=== PATIENT | male | born 1965 | race Caucasian/White ===

== ENCOUNTER 2023-11-05 09:41 | Outpatient (OUT) | payer BC, SELFPAY ==
[2023-11-05 10:00] LABS: Basophils Percent Auto 0.6 % (0.2-2.0); Eosinophils Absolute Auto 0.1 10^3/uL (0.0-0.7); Eosinophils Percent Auto 1.6 % (0.9-7.0); Hematocrit 44.7 % (42.0-54.0); Immature Granulocytes Abs Auto 0.01 10^3/uL (0.00-0.03); Immature Granulocytes Pct Auto 0.2 % (0.0-0.5); Lymphocytes Absolute Auto 1.4 10^3/uL (1.2-3.8); Lymphocytes Percent Auto 28.9 % (20.5-60.0); Mean Corpuscular HGB Conc 33.6 g/dL (29.9-35.2); Mean Corpuscular Hemoglobin 29.6 pg (25.9-34.0); Mean Corpuscular Volume 88.2 fL (80.0-94.0); Mean Platelet Volume 9.5 fL (9.5-13.5); Monocytes Absolute Auto 0.5 10^3/uL (0.3-0.8); Neutrophils Absolute Auto 2.9 10^3/uL (1.4-6.5); Neutrophils Percent Auto 58.7 % (43.0-75.0); Platelet Count 219 10^3/uL (150-450); Red Blood Count 5.07 10^6/uL (4.70-6.10); Red Cell Distribution Width 13.1 % (11.0-15.0); White Blood Count 4.9 10^3/uL (4.0-11.0)
[2023-11-05 10:31] LABS: Alanine Aminotransferase 31 U/L (16-63); Albumin Globulin Ratio 1.1; Alkaline Phosphatase 71 U/L (46-116); Aspartate Amino Transferase 17 U/L (15-37); BUN Creatinine Ratio 16.3; Bilirubin Total 0.9 mg/dL (0.2-1.0); Calcium 8.9 mg/dL (8.5-10.1); Carbon Dioxide 30.6 mmol/L (21.0-32.0); Chloride 104 mmol/L (98-107); Chol HDL Ratio 5.2; Cholesterol 219 mg/dL (<=200); Estimated GFR (African America >60 (>=60); Estimated GFR (Non-African Ame >60 (>=60); Globulin 3.8 g/dL; Glucose 94 mg/dL (74-106); HDL Cholesterol 42 mg/dL (40-60); Potassium 4.6 mmol/L (3.5-5.1); Sodium 142 mmol/L (136-145); Total Protein 7.8 g/dL (6.4-8.2); Triglycerides 172 mg/dL (<=150); VLDL CHOLESTEROL 34.4 mg/dL
[2023-11-05 12:36] LABS: Prostate Specific Antigen Scrn 0.92 ng/mL (<=4.00)
== END 2023-11-05 09:42 | disposition home or self-care (01) ==
LOC: LAB 09:45
PROVIDERS: PCP Internal Medicine; Visit Provider Internal Medicine
DX: Z00.00 Encounter for general adult medical examination without abnormal findings (principal)
CPT/HCPCS: 36415; 80053; 80061; 85025; G0103

== ENCOUNTER 2024-11-08 09:21 | Outpatient (OUT) | payer BC, SELFPAY ==
--- OUTSIDE RECORDS SUMMARY | 2024-11-08 09:43 | XMS_ITS | CCD ---
Author Organization [facility] Care Team Providers Care Nicker Name Role Phone DR ANDREA MARIA Admitting Unavailable CANDACE, DR MADRIGAL Attending Unavailable CANDACE, DR MADRIGAL Primary Care Unavailable CANDACE, DR MADRIGAL Consulting Unavailable Andrea Maria Unavailable ANDREA MARIA Primary Care Unavailable SHAKIRA AZAR Attending Unavailable SHAKIRA AZAR Attending Unavailable SHAKIRA AZAR Referring Unavailable ANDREA MARIA Primary Care Unavailable Medications Current Medications Medication Drug Class(es) Dates Sig (Normalized) Sig (Original) omeprazole 40 mg delayed release oral capsule (2 sources) Proton Pump Inhibitor take 1 capsule by mouth once daily before breakfast Omeprazole 40 MG TAKE ONE CAPSULE BY MOUTH EVERY MORNING ON AN EMPTY STOMACH -30 MINUTES BEFORE BREAKFAST for 90 Active zolpidem tartrate 10 mg oral tablet (4 sources) gamma-Aminobutyri c Acid-ergic Agonist Start: 10-20-2023 take 1 tablet by mouth once at bedtime Ambien 10 MG 1 tablet Orally q HS for 90 days Sep, Active Start: 10-28-2022 take 1 tablet by leslie once as needed zolpidem 10mg zolpidem 10mg, 1 Tablet q HS # 90, 10/28/2022, Ref. x1. Active oral q HS for 90 Oct, Not-Taking/PRN Completed/Discontinued Medications Medication Drug Class(es) Dates Sig (Normalized) Sig (Original) SZSTANDARD1-Topical Cream Baclofen 2%, Cyclobenzaprine HCL 2%, Diclofenac Na 3%, Gabapentin 6%, Lidocaine HCL 2% Cream (2 sources) Start: 2020 SZSTANDARD1-Topical Cream Baclofen 2%, Cyclobenzaprine HCL 2%, Diclofenac Na 3%, Gabapentin 6%, Lidocaine HCL 2% Cream NEEDED TOPICALLY APPLY 1-2 GRAMS FOR 2-3 MINUTES EVERY 6-8 HOURS for 30 day(s) Jul, Not-Taking/PRN Triamcinolone (2 sources) Corticosteroid Start: 09-04-2020 Kenalog -40 mg Aug, 60 mg Problems Active Problems Problem Classification Problem Date Documented Da te Episodic/Chronic Esophageal disorders (5 sources) Gastro-esophageal reflux disease with esophagitis; Translations: [Gastroesophageal reflux disease with esophagitis without hemorrhage] Chronic Miscellaneous mental health disorders (3 sources) Primary insomnia; Translations: [Primary insomnia] Chronic Open wounds of extremities (2 sources) Unspecified open wound of unspecified finger without damage to nail, initial encounter; Translations: [Laceration of finger] Onset: 05-26-2024 Episodic Other injuries and conditions due to external causes (1 source) Laceration - injury Onset: 05-26-2024 Episodic Other nervous system disorders (2 sources) Chronic pain; Translations: [Other chronic pain] Chronic Other nervous system disorders (2 sources) Radial tunnel syndrome; Translations: [Lesion of radial nerve, unspecified upper limb] Chronic Other non-traumatic joint disorders (2 sources) Arthralgia of the upper arm; Translations: [Pain in right elbow] Episodic Other nutritional; endocrine; and metabolic disorders (1 source) Overweight Episodic Other screening for suspected conditions (not mental disorders or infectious disease) (2 sources) Encounter for screening for malignant neoplasm of prostate; Translations: [ENC SCREEN MALIG NEOPLASM PROSTATE] Onset: 10-16-2022 Episodic Superficial injury; contusion (1 source) Contusion of left index finger without damage to nail, initial encounter; Translations: [Contusion of left index finger without damage to nail, initial encounter] Onset: 05-26-2024 Episodic Past or Other Problems Problem Classification Problem Date Documented Da te Episodic/Chronic Esophageal disorders (1 source) Esophageal disorders Results Test Name Value Interpretation Reference Range Facil ity XR FINGER LT 2ND DIGIT MIN 2 VWSon 05-26-2024 XR FINGER LT 2ND DIGIT MIN 2 VWS XR FINGER LT 2ND DIGIT MIN 2 VWS CLINICAL INFORMATION: Crush injury. trauma TECHNIQUE/PROCEDURE: 3 views of the left second digit COMPARISON: No relevant prior studies available. FINDINGS: Soft tissue injury. No radiopaque foreign body. No fracture or periosteal reaction. No osseous erosions. IMPRESSION: Soft tissue injury with no radiopaque foreign body or fracture. Finalized by Kyler Blount MD on 05/26/2024 8:45 AM Normal [facility] CBC AUTO DIFFon 10-11-2022 BASO # 0.0 103/ul Normal 0.0-0.1 [facility] Comment on above: Performed By: #### C BC #### [facility] [address] [place] [address] Dr. Esther Gamino Basophils/100 WBC (Bld) 0.7 % Normal 0.2-2.0 [facility] Comment on above: Performed By: #### C BC #### [facility] [address] [place] [address] Dr. Esther Gamino EO # 0.1 103/ul Normal 0.0-0.7 [facility] Comment on above: Performed By: #### C BC #### [facility] [address] [place] [address] Dr. Esther Gamino Eosinophils/100 WBC (Bld) 1.7 % Normal 0.9-7.0 [facility] Comment on above: Performed By: #### C BC #### [facility] [address] [place] [address] Dr. Esther Gamino Erythrocyte distribution width (RBC) [Ratio] 13.3 % Normal 11.0-15.0 [facility] Comment on above: Performed By: #### C BC #### [facility] [address] [place] [address] Dr. Esther Gaimno Hematocrit (Bld) [Volume fraction] 44.9 % Normal 42.0-54.0 [facility] Comment on above: Performed By: #### C BC #### [facility] [address] [place] [address] Dr. Esther Gamino Hemoglobin (Bld) [Mass/Vol] 15.2 g/dL Normal 14.0-18.0 [facility] Comment on above: Performed By: #### C BC #### [facility] [address] [place] [address] Dr. Esther Gamino IG # 0.02 10e3/ul Normal 0.00-0.03 [facility] Comment on above: Performed By: #### C BC #### [facility] [address] [place] [address] Dr. Esther Gamino IG % 0.5 % Normal 0.0-0.5 [facility] Comment on above: Performed By: #### C BC #### [facility] [address] [place] [address] Dr. Esther Gamino LYMPH # 1.4 103/ul Normal 1.2-3.8 [facility] Comment on above: Performed By: #### C BC #### [facility] [address] [place] [address] Dr. Esther Gamino Lymphocytes/100 WBC (Bld) 33.1 % Normal 20.5-60.0 [facility] Comment on above: Performed By: #### C BC #### [facility] [address] [place] [address] Dr. Esther Gamino MANUAL DIFF REQ NO Normal [facility] Comment on above: Performed By: #### C BC #### [facility] [address] [place] [address] Dr. Esther Gamino MCH (RBC) [Entitic mass] 28.8 pg Normal 25.9-34.0 [facility] Comment on above: Performed By: #### C BC #### [facility] [address] [place] [address] Dr. Esther Gamino MCHC (RBC) [Mass/Vol] 33.9 g/dL Normal 29.9-35.2 [facility] Comment on above: Performed By: #### C BC #### [facility] [address] [place] [address] Dr. Esther Gamino MCV (RBC) [Entitic vol] 85.2 fL Normal 80.0-94.0 [facility] Comment on above: Performed By: #### C BC #### [facility] [address] [place] [address] Dr. Esther Gamino MONO # 0.4 103/ul Normal 0.3-0.8 [facility] Comment on above: Performed By: #### C BC #### [facility] [address] [address] [address] Esther Gamino Monocytes/100 WBC (Bld) 10.5 % Normal 1.7-12.0 [facility] Comment on above: Performed By: #### C BC #### [facility] [address] [address] [address] Esther Gamino NEUT # 2.3 103/ul Normal 1.4-6.5 [facility] Comment on above: Performed By: #### C BC #### [facility] [address] [address] [address] Esther Gamino Neutrophils/100 WBC (Bld) 53.5 % Normal 43.0-75.0 [facility] Comment on above: Performed By: #### C BC #### [facility] [address] [address] [address] Esther Gamino Platelet mean volume (Bld) [Entitic vol] 9.3 fL Critically low 9.5-13.5 [facility] Comment on above: Performed By: #### C BC #### [facility] [address] [address] [address] Esther Gamino PLT 221 103/ul Normal 150-450 [facility] Comment on above: Performed By: #### C BC #### [facility] [address] [address] [address] Esther Gamino RBC 5.27 106/ul Normal 4.70-6.10 [facility] Comment on above: Performed By: #### C BC #### [facility] [address] [address] [address] Esther Gamino WBC 4.2 103/ul Normal 4.0-11.0 [facility] Comment on above: Performed By: #### C BC #### [facility] [address] [place] [address] Dr. Esther Gamino LIPID PROFILEon 10-11-2022 CHOL-HDL RATIO NORM SEE BELOW Normal [facility] Comment on above: Result Comment: 3.3 - 4.4 LOW RISK 4.4 - 7.1 AVERAGE RISK 7.1 - 11.0 MODERATE RISK >11.0 HIGH RISK Performed By: #### C MP, LIPID #### [facility] [address] [place] [address] Dr. Esther Gamino Cholesterol [Mass/Vol] 233 mg/dL Critically high <=200 [facility] Comment on above: Performed By: #### C MP, LIPID #### [facility] [address] [address] [address] Esther Gamino Cholesterol in HDL [Mass/Vol] 43 mg/dL Normal 40-60 [facility] Comment on above: Performed By: #### C MP, LIPID #### [facility] [address] [place] [address] Dr. Esther Gamino Cholesterol in LDL [Mass/Vol] 159.0 mg/dL Normal [facility] Comment on above: Performed By: #### C MP, LIPID #### [facility] [address] [place] [address] Dr. Esther Gamino Cholesterol.total/C holesterol in HDL [Mass ratio] 5.4 {ratio} Normal [facility] Comment on above: Performed By: #### C MP, LIPID #### [facility] [address] [place] [address] Dr. Esther Gamino HDL NORMAL > or = 60 mg/dl - LOW CARDIOVASCULAR RISK <40 mg/dl - HIGH CARDIOVASCULAR RISK Normal [facility] Comment on above: Performed By: #### C MP, LIPID #### [facility] [address] [place] [address] Dr. Esther Gamino LDL CALC NORMAL SEE BELOW Normal [facility] Comment on above: Result Comment: <100 mg/dl OPTIMAL 100 - 129 mg/dl NEAR OR ABOVE OPTIMAL 130 - 159 mg/dl BORDERLINE HIGH 160 - 189 mg/dl HIGH >190 mg/dl VERY HIGH Performed By: #### C MP, LIPID #### [facility] [address] [place] [address] Dr. Esther Gamino Triglyceride [Mass/Vol] 155 mg/dL Critically high <=150 [facility] Comment on above: Performed By: #### C MP, LIPID #### [facility] [address] [place] [address] Dr. Esther Gamino VLDL CALC 31.0 mg/dL Normal [facility] Comment on above: Performed By: #### C MP, LIPID #### [facility] [address] [place] [address] Dr. Esther Gamino PROF 14(COMP METB)on 10-11- 022 Albumin [Mass/Vol] 4.1 g/dL Normal 3.4-5.0 [facility] Comment on above: Performed By: #### C MP, LIPID #### [facility] [address] [place] [address] Dr. Esther Gamino Albumin/Globulin [Mass ratio] 1.1 {ratio} Normal [facility] Comment on above: Performed By: #### C MP, LIPID #### [facility] [address] [place] [address] Dr. Esther Gamino ALP [Catalytic activity/Vol] 73 U/L Normal 46-116 [facility] Comment on above: Performed By: #### C MP, LIPID #### [facility] [address] [place] [address] Dr. Esther Gamino ALT [Catalytic activity/Vol] 36 U/L Normal 16-63 [facility] Comment on above: Performed By: #### C MP, LIPID #### [facility] [address] [place] [address] Dr. Esther Gamino Anion gap [Moles/Vol] 7.2 mmol/L Normal [facility] Comment on above: Performed By: #### C MP, LIPID #### [facility] [address] [place] [address] Dr. Esther Gamino AST [Catalytic activity/Vol] 20 U/L Normal 15-37 [facility] Comment on above: Performed By: #### C MP, LIPID #### [facility] [address] [place] [address] Dr. Esther Gamino Bilirubin [Mass/Vol] 0.6 mg/dL Normal 0.2-1.0 [facility] Comment on above: Performed By: #### C MP, LIPID #### [facility] [address] [address] [address] Esther Gamino Calcium [Mass/Vol] 9.4 mg/dL Normal 8.5-10.1 [facility] Comment on above: Performed By: #### C MP, LIPID #### [facility] [address] [address] [address] Esther Gamino Chloride [Moles/Vol] 103 mmol/L Normal 98-107 [facility] Comment on above: Performed By: #### C MP, LIPID #### [facility] [address] [address] [address] Esther Gamino CO2 [Moles/Vol] 33.0 mmol/L Critically high 21.0-32.0 [facility] Comment on above: Performed By: #### C MP, LIPID #### [facility] [address] [place] [address] Dr. Esther Gamino Creatinine [Mass/Vol] 0.93 mg/dL Normal 0.70-1.30 [facility] Comment on above: Performed By: #### C MP, LIPID #### [facility] [address] [place] [address] Dr. Esther Gamino EGFR-AF NIUEAN >60 Normal >=60 [facility] Comment on above: Performed By: #### C MP, LIPID #### [facility] [address] [place] [address] Dr. Esther Gamino EGFR-NON AF NIUEAN >60 Normal >=60 [facility] Comment on above: Performed By: #### C MP, LIPID #### [facility] [address] [place] [address] Dr. Esther Gamino Globulin (S) [Mass/Vol] 3.9 g/dL Normal [facility] Comment on above: Performed By: #### C MP, LIPID #### [facility] [address] [place] [address] Dr. Esther Gamino Glucose [Mass/Vol] 92 mg/dL Normal 74-106 [facility] Comment on above: Performed By: #### C MP, LIPID #### [facility] [address] [address] [address] Esther Gamino Potassium [Moles/Vol] 4.2 mmol/L Normal 3.5-5.1 [facility] Comment on above: Performed By: #### C MP, LIPID #### [facility] [address] [address] [address] Esther Gamino Protein [Mass/Vol] 8.0 g/dL Normal 6.4-8.2 [facility] Comment on above: Performed By: #### C MP, LIPID #### [facility] [address] [address] [address] Esther Gamino Sodium [Moles/Vol] 139 mmol/L Normal 136-145 [facility] Comment on above: Performed By: #### C MP, LIPID #### [facility] [address] [address] [address] Esther Gamino Urea nitrogen [Mass/Vol] 20.0 mg/dL Critically high 7.0-18.0 [facility] Comment on above: Performed By: #### C MP, LIPID #### [facility] [address] [address] [address] Esther Gamino Urea nitrogen/Creatinine [Mass ratio] 21.5 mg/mg Normal [facility] Comment on above: Performed By: #### C MP, LIPID #### [facility] [address] [place] [address] Dr. Esther Gamino Vital Signs Date Time Vital Sign Value Performing Clinician Facility 11-05-2023 08:30-0500 Body height 177.8 cm Andrea [employer] Other [facility] Other 11-05-2023 08:30-0500 Body mass index (BMI) [Ratio] 26.51 kg/m2 [employer] Other [facility] Other 11-05-2023 08:30-0500 Body weight 83.83 kg Andrea [employer] Other [facility] Other 11-05-2023 08:30-0500 Diastolic blood pressure 83 mm[Hg] Andrea Maria Other [facility] Other 11-05-2023 08:30-0500 Respiratory rate 12 /min Andrea Maria Other [facility] Other 11-05-2023 08:30-0500 Systolic blood pressure 142 mm[Hg] Andrea Maria Other [facility] Other Encounters Encounter Date Encounter Type Care Provider Facility Start: 05-26-2024 End: 05-27-2024 Emergency department patient [facility] Start: 11-06-2023 End: 11-06-2023 ambulatory Andrea Maria Other [facility] Other Start: 11-06-2023 Telephone encounter Andrea Maria [facility] Start: 11-05-2023 End: 11-05-2023 ambulatory Andrea Maria Other [facility] Other Start: 11-05-2023 Encounter for genera l adult medical examination without abnormal findings Andrea Maria [facility] Start: 11-05-2023 Periodic preventive med est patient 40-64yrs Andrea Maria [facility] Start: 10-16-2022 Encounter for genera l adult medical examination without abnormal findings DR ANDREA MARIA [facility] Start: 10-11-2022 End: 10-12-[address] ANDREA MARIA Facility:[facility] Start: 10-11-2022 End: 10-12-2022 Encounter for general adult medical examination without abnormal findings DR ANDREA MARIA Facility:[facility] Procedures Date Procedure Procedure Detail Performing Clinician Start: 10-11-[address] [place] [facility] Comment on above: Performed By: #### P [facility] #### [facility] [address] [place] [address] Dr. Esther Gamino Immunizations Immunization Date Immunization Notes Care Provider Fa cili 09-24-2021 influenza virus vaccine, split virus (incl. purified surface antigen) Andrea Maria Other [facility] Other 08-25-2018 influenza virus vaccine, split virus (incl. purified surface antigen) Andrea Maria Other [facility] Other Payers Date Payer Category Payer Worker's Compensation [id number] 1965 Unknown [id number] 1965 Unknown [id number] 1965 Unknown [id number] 1957 Unknown [id number] Social History Date Type Detail Facility Sex Assigned At [facility] Other Evaluation note 11-05-2023 Note Date & Type Note Facility 11-05-2023 Evaluation note Encounter Date Diagnosis Assessment Notes Oct, Wellness examination (ICD-10 - Z00.00) Healthy diet and exercise. Reviewed age-appropria te preventive testing recommended. Oct, Gastroesophageal reflux disease with esophagitis without hemorrhage (ICD-10 - K21.00) Diet instructions: Smaller portions, avoid eating and laying flat, avoid eating or drinking prior to bedtime. Weight loss. Continue PPI Oct, Diaz's esophagus without dysplasia (ICD-10 - K22.70) Last EGD did not reveal changes consistent w/ BE Oct, Primary insomnia (ICD-10 - F51.01) Reviewed proper bedtime routine. Avoid exercise, TV, Phone, Computer use. Listen to music, white noise Oct, Overweight (ICD-10 - E66.3) This patient has been instructed on a low-fat, high-fiber diet. They are instructed to reduce calories, portion sizes and snacks. It is recommended that they exercise for 30 minutes, 3-5 times weekly. Oct, Screening PSA (prostate specific antigen) (ICD-10 - Z12.5) Yearly PSA and RUDDY [facility] Other Evaluation note Note Date & Type Note Facility Evaluation note No Information [facility] [employer] Other History general Narrative - Reported Note Date & Type Note Facility History general Narrative - Reported Type Medical History barretts esophagus Surgical History rotator cuff on the right Surgical History Colonoscopy 2017 Hospitalization History see above [facility] Other Summary Purpose Family History No Family History Records FoundNo Family History Records Found Advance Directives No Advanced Directives Records FoundNo Advanced Directives Records Found Additional Source Comments (unrecognized sect ion and content) No Status Records FoundNo Status Records Found INFORMATION SOURCE (unrecogn ized section and content) DATE CREATED AUTHOR 10/16/2022 [facility] DATE CREATED AUTHOR AUTHOR'S ORGANIZ ATION 05/27/2024 [facility] REASON FOR VISIT (unrecogniz ed section and content) [facility] results FOR RECORDS PERTAINING TO PATIENTS WHO ARE OR HAVE BEEN ENROLLED IN A CHEMICAL DEPENDENCY/SUBSTANCEABUSE PROGRAM, SOME INFORMATION MAY BE OMITTED. This clinical summary was aggregated from multiple sources. Caution should be exercised in using it in the provision of clinical care. This summary normalizes information from multiple sources, and as a consequence, information in this document may materially change the coding, format and clinical context of patient data. In addition, data may be omitted in some cases. CLINICAL DECISIONS SHOULD BE BASED ON THE PRIMARY CLINICAL RECORDS. [employer] provides no warranty or guarantee of the accuracy or completeness of information in this document.
[2024-11-08 09:53] LABS: Basophils Percent Auto 0.9 % (0.2-2.0); Eosinophils Absolute Auto 0.1 10^3/uL (0.0-0.7); Eosinophils Percent Auto 1.6 % (0.9-7.0); Hematocrit 45.3 % (42.0-54.0); Hemoglobin 15.1 g/dL (14.0-18.0); Immature Granulocytes Abs Auto 0.01 10^3/uL (0.00-0.03); Immature Granulocytes Pct Auto 0.2 % (0.0-0.5); Lymphocytes Absolute Auto 1.4 10^3/uL (1.2-3.8); Lymphocytes Percent Auto 31.9 % (20.5-60.0); Mean Corpuscular HGB Conc 33.3 g/dL (29.9-35.2); Mean Corpuscular Hemoglobin 29.3 pg (25.9-34.0); Mean Corpuscular Volume 87.8 fL (80.0-94.0); Mean Platelet Volume 9.8 fL (9.5-13.5); Monocytes Absolute Auto 0.5 10^3/uL (0.3-0.8); Monocytes Percent Auto 10.5 % (1.7-12.0); Neutrophils Absolute Auto 2.4 10^3/uL (1.4-6.5); Neutrophils Percent Auto 54.9 % (43.0-75.0); Platelet Count 231 10^3/uL (150-450); Red Blood Count 5.16 10^6/uL (4.70-6.10); Red Cell Distribution Width 13.2 % (11.0-15.0); White Blood Count 4.3 10^3/uL (4.0-11.0)
[2024-11-08 10:00] LABS: Alanine Aminotransferase 23 U/L (16-63); Albumin Level 3.8 g/dL (3.4-5.0); Alkaline Phosphatase 65 U/L (46-116); Aspartate Amino Transferase 16 U/L (15-37); BUN Creatinine Ratio 21.5; Bilirubin Total 0.9 mg/dL (0.2-1.0); Calcium 9.1 mg/dL (8.5-10.1); Carbon Dioxide 29.3 mmol/L (21.0-32.0); Chloride 105 mmol/L (98-107); Chol HDL Ratio 4.4; Cholesterol 186 mg/dL (<=200); Estimated GFR (African America >60 (>=60 mL/min/1.73m^2); Estimated GFR (Non-African Ame >60 (>=60 mL/min/1.73m^2); Globulin 3.7 g/dL; Glucose 86 mg/dL (74-106); HDL Cholesterol 42 mg/dL (40-60); LDL Cholesterol Calculated 117.8 mg/dL; Potassium 4.3 mmol/L (3.5-5.1); Sodium 143 mmol/L (136-145); Total Protein 7.5 g/dL (6.4-8.2); Triglycerides 131 mg/dL (<=150); VLDL CHOLESTEROL 26.2 mg/dL
[2024-11-08 10:56] LABS: Prostate Specific Antigen Scrn 1.04 ng/mL (<=4.00)
== END 2024-11-08 09:22 | disposition home or self-care (01) ==
LOC: LAB 09:23
PROVIDERS: PCP Internal Medicine; Visit Provider Internal Medicine
DX: Z00.00 Encounter for general adult medical examination without abnormal findings (principal)
CPT/HCPCS: 36415; 80053; 80061; 85025; G0103

== ENCOUNTER 2025-04-26 15:49 | Outpatient (OUT) | payer OTHER, SELFPAY ==
--- NOTE | 2025-04-26 15:55 | XR_ITS ---
[facility] [place] [id number] Patient Name: GAYATHRI ORR MRN: [id number] date: 1965 Sex: M Assigned Patient Location: RAD Current Patient Location: [facility] Accession/Order Number: [id number] Exam Date: 04/26/2025 16:45 Report Date: 04/26/2025 16:46 At the request of: ROHAN MARIA DO Procedure: XR abdomen min 2V Two-view COMPARISON: None HISTORY: Constipation THORAX: Lung bases unremarkable. FREE AIR: Supine position limits assessment BOWEL: No gaseous intestinal distention. STOOL: Large burden of stool throughout the colon RENAL STONES: No significant stones present. VASCULAR CALCIFICATIONS: Unremarkable SOFT TISSUE: Unremarkable BONES: Unremarkable POSTSURGICAL CHANGES: None XR/XR abdomen min 2V IMPRESSION: Constipation Impression dictated by: Ernesto Parmar M.D. 04/26/2025 4:46 PM Dictation Location: [facility] Electronically authenticated by: [id number] Y Date: 04/26/2025 16:46
== END 2025-04-26 15:50 | disposition home or self-care (01) ==
LOC: RAD 15:52
PROVIDERS: PCP Internal Medicine; Visit Provider Internal Medicine
DX: K59.00 Constipation, unspecified (principal)
CPT/HCPCS: 74019

== ENCOUNTER 2025-11-11 09:31 | Outpatient (OUT) | payer OTHER, SELFPAY ==
--- OUTSIDE RECORDS SUMMARY | 2025-11-11 04:28 | XMS_ITS | Continuity of Care Document ---
Author Organization [facility] Address [address] [place] [address] Phone Care Team Providers Care Furniture Cleaner Name Role Phone Andrea Stallings DO Primary Care Provider Andrea Stallings DO Attending Provider Care Teams Patient Care Team Team Status: Active Member Role/Relationship Status Dates Andrea Stallings DO Primary Care Provider Active Patient Care Team Team Status: Inactive Member Role/Relationship Status Dates Andrea Stallings DO Primary Care Provider Active Start: November 11, 2025 End: November 11enjalauri Stallings DOAttending ProviderActiveStart: November 11, 2025 End: November 11, 2025 Chief Complaint and Reason for Visit Chief Complaint Admit Date Wellness November 11, 2025 8:22am Reason for Visit Admit Date Constipation November 11, 2025 8:22am GERD (gastroesophageal reflux disease) D ecember 2024 8:22am Hypercholesterolemia November 11, 2025 8:22am Primary insomnia November 11, 2025 8:22am Screening PSA (prostate specific antigen ) November 11, 2025 8:22am Wellness examination November 11, 2025 8:22am Reason for Referral Type Reason(s) Provider Provider Contact Information Yahaira boudreaux Address Start Date Constipation K59.04 - Chronic idiopathic qcmafiebfkmdW09.04 - Chronic idiopathic constipation Selivn Ivory Phone: [phone] [place] Kaley [facility]At[facility] [id number] 2024 Allergies, Adverse Reactions, Alerts Allergen Type Severity Reaction Last Updated Verified Status Comments grass pollen Allergy Unknown Unknown Reaction November 11, 2025 8:21am Yes Active Onset Date: 2020 Social History Smoking Status Status Start Date End Date Date of Observa tion Never smoked tobacco (finding) November 11, 2025 8:28am Observation Status Observation Response Date of Response Legal Sex Male (finding) Sex Assigned At BirthMaleSeptember 1964Gender IdentityCisgender/Not transgender (finding)November 11, 2025Sexual OrientationUnknown Family History Relationship Condition Age at Onset Recorded Date/T frantz father Heart disease Unknown motherHeart diseaseUnknownDiabetes mellitusUnknown Problems Active Problems Problem Diagnosis/Recorded Date Onset Date Status C omments Primary insomnia April 27, 2024 11:05am Unknown Active Screening PSA (prostate specific antigen)November 05, 2024 6:59amUnknownActive PSA: 0.92 - 10/2023, 1.04 - 10/2024Wellness examinationDecember 2023 6:58amUnknownActiveHypercholesterolemiaDecember 2023 6:58amUnknownActive GERD (gastroesophageal reflux disease)November 08, 2025 10:08pmUnknownActive ConstipationJun2024 2:18pmUnknownActiveIBS (irritable bowel syndrome)April 26, 2025 2:20pmUnknownActive Medications Medication Status Dose Units Route Directions Qty Days Refills S tart Date Stop Date End Date Reason(s) Instructions Adherence Omeprazole 40 mg capsule,delayed release(DR/EC) Discon tinued 0 .ROUTE.DUOPDDL462Ljtwh 2023 4:09pmJanuary 2024 2:53pmTAKE ONE CAPSULE BY MOUTH DAILY ON EMPTY STOMACH 30 MINUTES BEFORE BREAKFASTZolpidem 10 mg tablet Jzbpctycfwpt32ISBPYmbie at gpjvcgu60725Fgou 2023 11:05amJune 2023 5:44pmPrimary insomnia Primary insomniaZolpidem 10 mg tmxitxJxkumgextqbj10LYVQJztim at dteddsa16249Ncnt 2023 5:44pmJuly 2023 12:57pmPrimary insomnia Primary insomniaZolpidem 10 mg rtgjspGvhnxiwaeebc72GTEXFhpwi at hgeezbq18248Uotr 2023 12:57pmJanuary 2024 1:51pmPrimary insomnia Primary insomniaZolpidem 10 mg sbgcwzQqxqqxkshegf01NMRLRvfta at czudjig60116 November 25, 2024 1:51pmJanuary 2024 1:02pmPrimary insomnia Primary insomniaZolpidem 10 mg qufwwuHjlhezqwgwcr18SAIZGyvei at tekghdk93915 November 26, 2024 1:01pmJune 2024 2:40pmPrimary insomnia Primary insomniaOmeprazole 40 mg capsule,delayed release(DR/EC)Discontinued0 .ROUTE.LIIMJZH505Fydtxog 2024 2:53pmFebruary 2024 10:31pmTAKE 1 CAPSULE BY MOUTH DAILY ON AN EMPTY STOMACH BEFORE BREAKFASTOmeprazole 40 mg capsule,delayed release(DR/EC)Xaesln36BXEWMfabu18328Cxgihfyz 2024 10:30pm Take on an empty stomach, 30 minutes prior to bkfstComplies with drug therapy Zolpidem 10 mg mtxbtxLrvnoumstsgy92DUJDVgjve at uigtliq37180Cngp 13th, 2025 2:40pmDeceer 2024 10:23amPrimary insomnia Primary insomniaZolpidem 10 mg xxgabdSqhsek31PBFYAktko at qfdedwc67652Ijezqezu2024 10:23amPrimary insomnia Primary insomniaComplies with drug therapyVarenicline Tartrate (Tyrvaya) 0.03 mg/spray spray, metered, non-gpygstgGcyttb3OZISEGQWFYZRMEGQfxdw dailyDedignity health [facility] 2023 12:00amadminister into each nostril; approximately 12 hours apart Complies with drug therapyOmeprazole 40 mg capsule,delayed release(DR/EC) Apodsxephyaq53XTBDMdehwWwnhu 2023 11:00pmApril 2023 4:10pmZolpidem 10 mg gjgjwfYrpzngcpsypv92NCUTIdmrk at bedtimeCh[facility] 2023 11:00pmJune 2023 11:06am Immunizations Immunization Event Date Not Given Reason Dose Number Sales Stock Associate Lot Number Reason(s) Given Vaccine Information Statement (VIS) Detail Administration Location influenza, unspecified formulation August 25, 2018 influenza, unspecified formulationSeptember 24, 2021 Vital Signs Vital Reading Result Reference Range Collection Date/Time Height 70 [in_i] November 11, 2025 8:94csJaovpd63.82 kgDece2024 8:21amHeart Rate68 /fhj98-144Utwenurn 19th, 2025 8:21amRespiratory rate14 /phy40-47Qovzojde 2024 8:21amOxygen saturation by Pulse rruzrnkh44 %95-100November 11, 2025 8:21amBP Wibsppig063 mm[Hg]100-140De2024 8:21amBP Nvndnogvo06 mm[Hg]60-100December 2024 8:21amBMI (Body Mass Index)26.8 kg/y0Ktcupudq2024 8:21am Advance Directives Advance Directive Response Recorded Date/ Time Advance Directives No December 23, 2023 4:17pm Insurance Providers Guarantor Polo Stewart Address [address] [place] [id number] Info.Home Phone: Coverage Status Update:2025 Payer Group Member ID Coverage Type Subscriber Relationship to Subscriber Effective Date Expiration Date Aftab BEEBE Id: [id number] Ku Id: [id number] [address] [place] [id number] Home Phone: Email: [email or web address] Claims [id number] Ku Id: [id number] [address] [facility] [id number] Home Phone: Email: [email or web address] Encounters Encounter Location(s) Arrival/Admit Date Discharge/Departure Date Discharge/Departure Disposition Provider(s) Departed Physician/ Provider Office Visit -[facility] November 11, 2025 8:22am November 11, 2025 9:26am Discharged to home care or self care (routine discharge) Andrea Ball , DO Recent Diagnosis Onset Date Admit Date Constipation Unknown November 11, 2 025 8:22am GERD (gastroesophageal reflux disease) Unknown November 11, 2025 8:22am Hypercholesterolemia Unknown November 112024 8:22am Primary insomnia Unknown November 11, 2025 8:22am Screening PSA (prostate specific antigen) Unknow n November 11, 2025 8:22am Wellness examination Unknown November 112024 8:22am Assessments Diagnosis Onset Date Resolution Status Admit Date Constipation acuteDe2024 8:22amGERD (gastroesophageal reflux disease)acute November 11, 2025 8:22amHypercholesterolemiaacuteDecember 2024 8:22am Primary insomniaacuteNovember 11, 2025 8:22amScreening PSA (prostate specific antigen)acuteDe2024 8:22amWellness examinationacuteDe2024 8:22am Plan of Treatment Author [facility]ings [facility] 9:02amI have instructed this patient on the recommended lifestyle changes, which includes a low fat, high fiber diet along with a regular exercise routine. I have also reviewed the recommended age-appropriate preventive testing for this patient. I have also reviewed the recommended vaccines for their age and risk factors. I have instructed this patient on a low fat, high fiber diet and exercise. I have discussed the primary and secondary prevention benefits attributed to lowering LDL cholesterol. I have also discussed the medical treatment of elevated cholesterol, which is based on the 10 year ASCVD risk. Instructed on consistent sleep routine. Avoid exercise, TV, phone, computer or food prior to bedtime. Instructed to avoid daytime naps. Instructed to read or listen to music prior to bedtime, as a way to wind down and relax. I have recommended yearly PSA testing. I have informed him that the PSA can be elevated w/ cancer, infection and enlarged prostates. I have explained to the patient, that If his PSA is elevated, while there are many causes, referral will be recommended to r/o cancer. He would be referred to Urology, who may recommend an MRI, TRUS/bx or possibly continued monitoring. He is agreeable to this plan of action PSA: 1. - 10/2024 I have instructed this patient to avoid lying flat after eating.?? I have also recommended to avoid eating 2 hours prior to bedtime.?? They were also informed that smaller, frequent meals may be better tolerated. I have discussed additional treatment options for persistent symptoms, which includes: weight loss, H2 blockers and PPI. I have also instructed them to notify the office with any pain or difficulty swallowing. Continue Omeprazole without interruption This has been present for about 6mo w/o explanation. He denies change in appetite, weight or any abdominal pain He denies melena or hematochezia His Maternal grandfather had colon cancer It has been 8 years since his last colonoscopy I have recommended increasing fiber, begin Metamucil and referral for colonoscopy Future Tests Future scheduled test information is unavailable Pending Tests Test Name Ordered Date Scheduled Date Comprehensive Metabolic Panel November 11 8:55am Future Visits Future appointment information is unavailable Future Procedures Procedure Name Ordered Date Scheduled Date Complete Blood Count Auto Diff November 11 8:55am Lipid PanelDecember 2024 8:55amPSA Screen (Yearly Only)November 11, 2025 8:55am Future Medications Future medication information is unavailable Patient Instructions Patient instructions are unavailable Hospital Discharge Instructions Ambulatory Orders* Referral to General Surgery Location: None Selected
--- OUTSIDE RECORDS SUMMARY | 2025-11-11 09:36 | XMS_ITS | Clinical Summary ---
Author Organization [facility] Address [address] [place] [address] Care Team Providers Care Manager Oracle Database Name Role Phone Unavailable Primary Care Provider Unavailabl e Social History Tobacco UseTypesPacks/DayYears UsedDateSmoking Tobacco: Never AssessedSex and Gender InformationValueDate RecordedSex Assigned at BirthNot on fileLegal Sex Male05/23/2022 12:25 AM EDTGender IdentityNot on fileSexual OrientationNot on file Plan of Treatment Not on file
--- OUTSIDE RECORDS SUMMARY | 2025-11-11 09:36 | XMS_ITS | Clinical Summary ---
Author Organization [facility] Address [address] [place] [address] Care Team Providers Care Solidworks Designer Name Role Phone Andrea Stallings Primary Care Provider [phone] Allergies No known active allergies Medications MedicationSigDispense QuantityRefillsLast FilledStart DateEnd DateStatus omeprazole (PriLOSEC) [address] capsule Take 10 mg by mouth in the morning. Take before meals. Do not crush or chew. 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 15 tablet 5Active predniSONE (Deltasone) 10 MG tablet Indications:Hallux rigidus of both feetTake twice daily for 5 days, then take once daily for 5 days. 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 (Primary Dx); Predislocation syndrome of metatarsophalangeal joint of right foot; Equinus contracture of left ankle; Equinus contracture of right ankle; Pain in joints of both feet10/19/2025amboo flowsheet [facility] [address] [place] [address] Radhames Weems DPM 10/19/20253335Wftfzj95/22/2025 4:45 PM EDTAncillary Procedure [facility] [address] [place] [address] 09/14/2025 4:40 PM EDTAncillary Procedure [facility] [address] [place] [address] 09/14/2025 3:30 PM EDTOffice Visit [facility] [address] [place] [address] Radhames Weems DPM Hallux rigidus of both feet (Primary Dx); 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; Predislocation syndrome of metatarsophalangeal joint of right foot; Equinus contracture of left ankle; Equinus contracture of right ankle; Metatarsalgia of both feet; Pain in both feet09/14/2025bstract [facility] [address] [place] [address] Radhames Weems DPM 09/14/2025amboo flowsheet [facility] [address] [place] [address] Radhames Weems DPM 09/14/2025Travelfrom Last 3 Months Family History Medical HistoryRelationNameCommentsCancerMaternal GrandfathercolonStrokeMaternal GrandmotherDiabetesMotherRelationNameStatusCommentsMaternal GrandfatherMaternal GrandmotherMother Social History Tobacco UseTypesPacks/DayYears UsedDateSmoking Tobacco: NeverSmokeless Tobacco: Never Tobacco Cessation:Counseling Given: Not Answered Sex and Gender InformationValueDate RecordedSex Assigned at BirthNot on file Legal NamRgph7202/05/2023 8:28 PM EDTGender IdentityNot on fileSexual Orientation Not on file Last Filed Vital Signs Vital SignReadingTime TakenCommentsBlood Pressure--Pulse--Temperature-- Respiratory Rate--Oxygen Saturation--Inhaled Oxygen Concentration--Tvqrrq52.6 kg (180 lb)10/19/2025 3:57 PM FCEFvyslh992.8 cm (5' 10 )10/19/2025 3:57 PM ESTBody Mass Index25.8310/19/2025 3:57 PM EST Plan of Treatment DateTypeDepartmentCare Team (Latest Contact Info)Levxcquaokl04/05/2026 4:00 PM ESTOffice Visit [facility] [address] [place] [address] Radhames Weems, DPLissette [address] [place] [address] Health MaintenanceDue DateLast DoneCommentsCT Jwcxhsqvhhez1967Colonoscopy 1967Colorectal Cancer Bcfexhnbv1967FIT-DNA1967FIT1967 FOBT1967 5835Kokomijkcnnpv1967COVID-19 Vaccine ( season) , 10/07/2023, 09/04/2022, Additional history existsInfluenza Vaccine (#1), 10/02/2023, 09/03/2022, Additional history existsPneumococcal Vaccine: Pediatrics (0 to 5 Years) and At-Risk Patients (6 to 64 Years)Aged OutNo longer eligible based on patient's age to complete this topic Procedures Procedure NamePriorityDate/TimeAssociated DiagnosisCommentsXR FOOT 3+ VIEWS LEFT Ewoktof8809/14/2025 4:38 PM EDT Hallux rigidus of both feet 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 Predislocation syndrome of metatarsophalangeal joint of right foot Metatarsalgia of both feet Pain in both feet XR FOOT 3+ VIEWS KXKHKWxlozue59/22/2025 4:38 PM EDT Hallux rigidus of both feet 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 Predislocation syndrome of metatarsophalangeal joint of right foot Metatarsalgia of both feet Pain in both feet from Last 3 Months Results * XR foot 3+ views left (09/14/2025 4:38 PM EDT)Anatomical RegionLaterality ModalityLower Extremities, FootLeftRadiographic ImagingSpecimen (Source) Anatomical Location / LateralityCollection Method / VolumeCollection Time Received Time Narrative 09/14/2025 4:39 PM EDT Imaging Result: AP, medial oblique, lateral views are weight-bearing. ??There is some mild joint space narrowing of the 1st MTP with mild periarticular osteophytes. ?? Very minimal subchondral sclerosis. ??Slight plantar flexion contracture of the 2nd and 3rd toes of the MTP. ??Decreased calcaneal inclination. ?? Enthesophyte at the insertion of the Achilles tendon and plantar fascia. ?? First ray elevation. Authorizing ProviderResult TypeResult StatusAnthcharli Weems DPMIMG XR PROCEDURESFinal Result * XR foot 3+ views right (09/14/2025 4:38 PM EDT)Anatomical RegionLaterality ModalityLower Extremities, FootRightRadiographic ImagingSpecimen (Source) Anatomical Location / LateralityCollection Method / VolumeCollection Time Received Time Narrative 09/14/2025 4:39 PM EDT Imaging Result: AP, medial oblique, lateral views are weight-bearing. ??No acute fractures or dislocations. ??Joint space narrowing of the 1st MTP with subchondral sclerosis, periarticular osteophytes. ??Elongation of the 2nd metatarsal most notably. ??Slight plantar flexion contracture of the 2nd toe at the PIPJ joint. ??Elevation of the 1st ray. ??Decreased calcaneal inclination. ?? Enthesophyte at the insertion of the Achilles tendon and plantar fascia. Authorizing ProviderResult TypeResult StatusAnthcharli Weems DPMIMG XR PROCEDURESFinal Result from Last 3 Months Insurance Care Teams Team MemberRelationshipSpecialtyStart DateEnd Date Andrea Stallings DO [address] [place] [phone] PCP - GeneralInternal Rrcpqldk10/22/25
--- OUTSIDE RECORDS SUMMARY | 2025-11-11 09:36 | XMS_ITS | Continuity of Care Document ---
Author [facility] Address [address] [place] [address] Problems Unknown Problems Results Test Value / Unit Interpretation Reference Ran SARS-COV-2 (COVID19), NAAT[[id number]] Collected: 09/25/2020 05:34 PM Specimen Received: 09/27/2020 06:42 AM Source: [facility] SARS-CoV-2 INTERPRETATION [[id number]] Negative See ObwfXNKK-PuE-7 RNA NOT DETECTEDNegative results do not preclude SARS-CoV-2 infection and should notbe used as the sole basis for patient management decisions. Negativeresults must be combined with clinical observations, patient history,and epidemiological information. Optimum specimen types and timingfor peak viral levels during infections caused by SARS-CoV-2 have notbeen determined. Collection of multiple specimens or types ofspecimens may be necessary to detect virus. Improper specimencollectionand handling, sequence variability under primers/probes,or organism present below the limit of detec tion may lead to falsenegative results. Positive and negative predictive values oftesting are highly dependent on prevalence. False negative testresults are more likely when prevalence is high.SOURCE [[id number]]NASOPHARYNGEALNote: Methodology is Nazanin Jeremie Real-Time RT-PCR. The expected result or reference range is NEGATIVE (Not Detected). For more information regarding COVID-19 testing to include clinicalinformation, methodology detail, intended use, FDA authorization andrecommended fact sheets for patients or healthcare providers, see NewTest Announcement: SARS-CoV-2 (COVID-19) by NAAT at URL below (note,fact sheets are provided by method given in report:https://www.[employer]/clinicians/client-communications/ Alternatively, see downloadable PDF fact sheet at:https://www.[employer]/EUONE-00-KI-PCR Allergies, adverse reactions, alerts No known allergies and adverse reactions Medications No administered medications reported Vital Signs No vital signs reported Social History No smoking Hx information available
--- OUTSIDE RECORDS SUMMARY | 2025-11-11 09:36 | XMS_ITS | Clinical Summary ---
Author Organization [facility] Address [id number] [place] [address] Care Team Providers Care Network Cabler Name Role Phone Andrea Stallings Primary Care Provider [phone] Allergies No known active allergies Medications MedicationSigDispense QuantityRefillsLast FilledStart DateEnd DateStatus fluticasone (FLONASE) 50 mcg/actuation nasal spray 10/14/2017Active zolpidem (AMBIEN) 10 mg tablet Take 10 mg by mouth nightly as needed for sleep.Active omeprazole (PriLOSEC) 40 mg capsule Take 1 capsule (40 mg total) by mouth daily. 30 capsule Active fluticasone propionate (FLONASE) 50 mcg/actuation nasal spray Indications:Nasal congestionAdminister 1 spray into each nostril daily. 15.8 mL 12112/25/2019Active Active Problems ProblemNoted DateDiagnosed JpfiLihheywjnc27/14/2021GERD (gastroesophageal reflux disease)05/07/2021Nasal /01/2020 Family History Medical HistoryRelationNameCommentsHypertensionFatherColon cancerMaternal GrandfatherDiabetesMotherRelationNameStatusCommentsFatherAliveMaternal GrandfatherMotherAlive Social History Tobacco UseTypesPacks/DayYears UsedDateSmoking Tobacco: NeverSmokeless Tobacco: NeverAlcohol UseStandard Drinks/WeekCommentsYes0 (1 standard drink = 0.6 oz pure alcohol)rareChildcareAnswerDate RetmgnheIzevijcxpUynmiys79/12/2019Employment AnswerDate AwtuvjymUxavixfexjFvxajuh06/12/2019Hunger ScreeningAnswerDate RecordedWithin the past 12 months we worried whether our food would run out before we got money to buy more.Never True05/26/2024Within the past 12 months the food we bought just didn't last and we didn't have money to get more.Never True4Purpose - LifeAnswerDate RecordedPurpose and direction in life Yoiyfcy1301/04/2021ex and Gender InformationValueDate RecordedSex Assigned at BirthNot on fileLegal UibGbqn4506/29/2015 11:41 AM EDTGender IdentityNot on file Sexual OrientationNot on file Last Filed Vital Signs Vital SignReadingTime TakenCommentsBlood Fsggsoqm238/8205/26/2024 9:15 AM EDT Vpqvn146505/26/2024 9:15 AM XKMPivyykregmp06.6 ??C (97.9 ??F)05/26/2024 7:39 AM EDTRespiratory Sywn958705/26/2024 9:15 AM EDTOxygen Mxcxiaohla52%05/26/2024 9:15 AM EDTInhaled Oxygen Concentration--Uxzmzp70.7 kg (189 lb)11/06/2021 4:50 PM EST Iqugtt356.8 cm (5' 10 )11/06/2021 4:50 PM ESTBody Mass Index27.12101/07/2021 4:50 PM EST Plan of Treatment Health MaintenanceDue DateLast DoneCommentsDepression Akicloyjn63/14/1979Adult BMI Vwfhkleiv76/14/1985Zoster (Shingles) Vaccine (1 of 2)2017Tobacco Tqcywhkbq77/03/605245/OVID-19 Vaccine (2024- season)2025 10/07/2023, 09/04/2022, 04/18/2022, Additional history existsInfluenza Vaccine /07/2023, 09/03/2022, 09/17/2021, Additional history existsDTaP,Tdap and Td Vaccines (2 - Td or Tdap) Medical Devices Not on file Insurance Care Teams Team MemberRelationshipSpecialtyStart DateEnd Date Andrea Stallings DO [address] [place] [address] [facility] - General05/26/24
[2025-11-11 10:11] LABS: Hematocrit 43.4 % (42.0-54.0); Hemoglobin 14.8 g/dL (14.0-18.0); Immature Granulocytes Abs Auto 0.01 10^3/uL (0.00-0.03); Immature Granulocytes Pct Auto 0.2 % (0.0-0.5); Lymphocytes Absolute Auto 1.2 10^3/uL (1.2-3.8); Mean Corpuscular HGB Conc 34.1 g/dL (29.9-35.2); Mean Corpuscular Hemoglobin 30.1 pg (25.9-34.0); Mean Corpuscular Volume 88.4 fL (80.0-94.0); Platelet Count 196 10^3/uL (150-450); Red Blood Count 4.91 10^6/uL (4.70-6.10); White Blood Count 4.0 10^3/uL (4.0-11.0)
[2025-11-11 11:10] LABS: Alanine Aminotransferase 28 U/L (16-63); Albumin Globulin Ratio 1.1; Albumin Level 3.8 g/dL (3.4-5.0); Alkaline Phosphatase 63 U/L (46-116); Anion Gap 7.6; Aspartate Amino Transferase 17 U/L (15-37); Blood Urea Nitrogen 20.0 mg/dL (7.0-18.0); Calcium 9.2 mg/dL (8.5-10.1); Carbon Dioxide 30.4 mmol/L (21.0-32.0); Chloride 107 mmol/L (98-107); Cholesterol 210 mg/dL (<=200); Estimated GFR (African America >60 (>=60 mL/min/1.73m^2); Estimated GFR (Non-African Ame >60 (>=60 mL/min/1.73m^2); Globulin 3.5 g/dL; Glucose 86 mg/dL (74-106); HDL Cholesterol 40 mg/dL (40-60); Potassium 4.0 mmol/L (3.5-5.1); Sodium 141 mmol/L (136-145); Total Protein 7.3 g/dL (6.4-8.2); Triglycerides 163 mg/dL (<=150); VLDL CHOLESTEROL 32.6 mg/dL
== END 2025-11-11 09:32 | disposition home or self-care (01) ==
LOC: LAB 09:32
PROVIDERS: PCP Internal Medicine; Visit Provider Internal Medicine
DX: Z00.00 Encounter for general adult medical examination without abnormal findings (principal); Z12.5 Encounter for screening for malignant neoplasm of prostate
CPT/HCPCS: 36415; 80053; 80061; 85025; G0103